=== PATIENT | male | born 1955 | race Caucasian/White ===

== ENCOUNTER 2016-09-28 20:39 | Emergency (ER) | payer MEDICAID ==
[~2016-09-28] VITALS: Ht 180.3 cm; Wt 78.0 kg
[2016-09-28 20:44] VITALS: BP 109/66; PULSE 83; RESP 20; TEMP 98; O2SAT 95
[2016-09-28 20:56] VITALS: BP_SYST 109; BP_SYST 110; BP_DIAS 62; BP_DIAS 66; PULSE 84; RESP 20; O2SAT 98
[2016-09-28] MEDS ORDERED: SODIUM CHLORIDE 0.9% FLUSH 5 ML FLUSH IVF PRN (21:00)
[2016-09-28] MEDS ORDERED: ASPIRIN 81 MG CHEW TAB PO ONE (21:00)
[2016-09-28] MEDS ORDERED: SODIUM CHLOR 0.9% 1000 ML INJ 1,000 ML IV ONE (21:00)
--- NOTE | 2016-09-28 21:19 | RADRPT ---
EXAM DATE/TIME: 09/28/2016 21:02 [facility] COMPARISON: CHEST SINGLE AP, September 07, 2016, 17:00. INDICATIONS : Patient has had chest pain today. MEDICAL HISTORY : Hypertension. Cerebrovascular disease. Throat cancer. SURGICAL HISTORY : None. ENCOUNTER: Initial ACUITY: 1 day PAIN SCORE: 0/10 LOCATION: Bilateral chest FINDINGS: A single view of the chest demonstrates the lungs to be symmetrically aerated without evidence of mas s, infiltrate or effusion. The cardiomediastinal contours are unremarkable. Osseous structures are intact. CONCLUSION: No acute disease. Jerome Hyatt MD FACR on September 28, 2016 at 21:17 Board Certified Radiologist. This report was verified electronically.
[2016-09-28 21:45] LABS: AUTOMATED NEUTROPHIL # 2.9 TH/MM3 (1.8-7.7); BASOPHIL # 0.1 TH/MM3 (0-0.2); EOSINOPHIL # 0.2 TH/MM3 (0-0.4); EOSINOPHIL % 3.7 % (0.0-4.0); HEMATOCRIT 38.7 % (39.0-51.0); HEMO FLAGS DIFF FINAL; LYMPH % 41.8 % (9.0-44.0); LYMPHOCYTE # 2.7 TH/MM3 (1.0-4.8); MEAN CELL VOLUME 101.2 FL (80.0-100.0); MEAN CORPUSCULAR HEMOGLOBIN 34.5 PG (27.0-34.0); MEAN CORPUSCULAR HGB CONC 34.1 % (32.0-36.0); MONO % 8.6 % (0.0-8.0); NEUT % 44.9 % (16.0-70.0); PLATELET COUNT 176 TH/MM3 (150-450); RED BLOOD COUNT 3.82 MIL/MM3 (4.50-5.90); RED CELL DISTRIBUTION WIDTH 13.7 % (11.6-17.2); WHITE BLOOD COUNT 6.5 TH/MM3 (4.0-11.0)
[2016-09-28 22:01] LABS: ANION GAP 7 MEQ/L (5-15); AST (GOT) 37 U/L (15-37); BICARBONATE 28.7 MEQ/L (21.0-32.0); BLOOD UREA NITROGEN 13 MG/DL (7-18); CHLORIDE 108 MEQ/L (98-107); GLOMERULAR FILTRATION RATE 97 ML/MIN (>89); MAGNESIUM 2.4 MG/DL (1.5-2.5); POTASSIUM 3.8 MEQ/L (3.5-5.1); SODIUM (NA) 144 MEQ/L (136-145)
[2016-09-28 22:06] LABS: INTERNATIONAL NORMALIZED RATIO 0.9 RATIO; PROTHROMBIN TIME - PATIENT 10.1 SEC (9.8-11.6)
[2016-09-28 22:08] LABS: ALKALINE PHOSPHATASE 83 U/L (45-117); ALT (GPT) 25 U/L (12-78); TOTAL BILIRUBIN ADULT 0.3 MG/DL (0.2-1.0)
[2016-09-29] VITALS: BP 110/68; PULSE 65; RESP 18; O2SAT 98
[2016-09-29 03:00] VITALS: BP 106/61; PULSE 61; RESP 18; O2SAT 96
[2016-09-29 06:00] VITALS: BP 113/64; PULSE 64; RESP 18; O2SAT 95
--- NOTE | 2016-09-29 06:36 | PD ---
HPI Chief Complaint: Chest Pain Time Seen by Provider: 20:48 Travel History International Travel<30 days: No Contact w/Intl Traveler<30days: No Traveled to known affect area: No History of Present Illness HPI Patient is a 61-year-old male brought in by EMS for chest pain. Per EMS he has been drinking tonight. When police approached him, he said he had chest pain. Patient does admit to drinking tonight. He says the left side of his chest is hurting. He does not provide much other history. PFSH Past Medical History Arthritis: Yes Blood Disorders: No Cancer: Yes (LARYNX) Cardiovascular Problems: Yes COPD: Yes Cerebrovascular Accident: Yes Coronary Artery Disease: Yes Diminished Hearing: No Endocrine: No Gastrointestinal Disorders: Yes Genitourinary: No Hypertension: Yes Immune Disorder: No Musculoskeletal: Yes (DJD) Neurologic: Yes (BENIGN TUMOR- BRAIN) Psychiatric: No Respiratory: Yes Immunizations Current: Yes Myocardial Infarction: Yes Seizures: Yes Tetanus Vaccination: Unknown Influenza Vaccination: No Past Surgical History Abdominal Surgery: Yes (COLONOSCOPY) Social History Alcohol Use: Yes (OCCASIONAL) Tobacco Use: Yes (1PPD) Substance Use: No Allergies-Medications (Allergen,Severity, Reaction): Coded Allergies: No Known Allergies (Verified , 09/28/16) Reported Meds & Prescriptions Reported Meds & Active Scripts Active No Active Prescriptions or Reported Medications Review of Systems ROS Limitations: Intoxication HENT: No: Headaches Cardiovascular: Positive: Chest Pain or Discomfort Respiratory: No: Shortness of Breath Gastrointestinal: No: Nausea, Vomiting, Abdominal Pain Musculoskeletal: No: Weakness Skin: No Rash, No Change in Pigmentation Neurologic: No: Weakness, Dizziness Physical Exam Narrative GENERAL: Awake and alert, unkept, alcohol on breath. SKIN: Warm and dry. HEAD: Atraumatic. Normocephalic. EYES: Pupils equal and round. No scleral icterus. ENT: Mucous membranes pink and moist. NECK: Trachea midline. No JVD. CARDIOVASCULAR: Regular rate and rhythm. No murmur appreciated. RESPIRATORY: No accessory muscle use. Clear to auscultation. Breath sounds equal bilaterally. GASTROINTESTINAL: Abdomen soft, non-tender, nondistended. MUSCULOSKELETAL: No obvious deformities. No clubbing. No cyanosis. No edema. NEUROLOGICAL: Awake and alert. No obvious cranial nerve deficits. Motor grossly within normal limits. Normal speech. PSYCHIATRIC: Appropriate mood and affect; insight and judgment normal. Data Data Last Documented VS Vital Signs Date Time Temp Pulse Resp B/P Pulse Ox O2 Delivery O2 Flow Rate FiO2 09/29/16 06:00 64 18 113/64 95 Room Air 09/28/16 20:44 98.0 Orders Electrocardiogram (09/28/16 20:53) Complete Blood Count With Diff (09/28/16 20:53) Comprehensive Metabolic Panel (09/28/16 20:53) Magnesium (Mg) (09/28/16 20:53) Prothrombin Time / Inr (Pt) (09/28/16 20:53) Act Partial Throm Time (Ptt) (09/28/16 20:53) Troponin I (09/28/16 20:53) Lipase (09/28/16 20:53) Chest, Single Ap (09/28/16 20:53) Ecg Monitoring (09/28/16 20:53) Bilateral Bp Monitoring (09/28/16 20:53) Iv Access Insert/Monitor (09/28/16 20:53) Oximetry (09/28/16 20:53) Oxygen Administration (09/28/16 20:53) Aspirin Chew (Aspirin Chew) (09/28/16 21:00) Sodium Chloride 0.9% Flush (Ns Flush) (09/28/16 21:00) Sodium Chlor 0.9% 1000 Ml Inj (Ns 1000 M (09/28/16 21:00) Alcohol (Ethanol) (09/28/16 21:35) Labs Laboratory Tests Test 09/28/16 21:10 White Blood Count 6.5 TH/MM3 Red Blood Count 3.82 MIL/MM3 Hemoglobin 13.2 GM/DL Hematocrit 38.7 % Mean Corpuscular Volume 101.2 FL Mean Corpuscular Hemoglobin 34.5 PG Mean Corpuscular Hemoglobin 34.1 % Concent Red Cell Distribution Width 13.7 % Platelet Count 176 TH/MM3 Mean Platelet Volume 8.1 FL Neutrophils (%) (Auto) 44.9 % Lymphocytes (%) (Auto) 41.8 % Monocytes (%) (Auto) 8.6 % Eosinophils (%) (Auto) 3.7 % Basophils (%) (Auto) 1.0 % Neutrophils # (Auto) 2.9 TH/MM3 Lymphocytes # (Auto) 2.7 TH/MM3 Monocytes # (Auto) 0.6 TH/MM3 Eosinophils # (Auto) 0.2 TH/MM3 Basophils # (Auto) 0.1 TH/MM3 CBC Comment DIFF FINAL Differential Comment Prothrombin Time 10.1 SEC Prothromb Time International 0.9 RATIO Ratio Activated Partial 26.0 SEC Thromboplast Time Sodium Level 144 MEQ/L Potassium Level 3.8 MEQ/L Chloride Level 108 MEQ/L Carbon Dioxide Level 28.7 MEQ/L Anion Gap 7 MEQ/L Blood Urea Nitrogen 13 MG/DL Creatinine 0.81 MG/DL Estimat Glomerular Filtration 97 ML/MIN Rate Random Glucose 95 MG/DL Calcium Level 8.2 MG/DL Magnesium Level 2.4 MG/DL Total Bilirubin 0.3 MG/DL Aspartate Amino Transf 37 U/L (AST/SGOT) Alanine Aminotransferase 25 U/L (ALT/SGPT) Alkaline Phosphatase 83 U/L Troponin I LESS THAN 0.02 NG/ML Total Protein 6.6 GM/DL Albumin 3.4 GM/DL Lipase 135 U/L Ethyl Alcohol Level 338 MG/DL [facility] Medical Decision Making Medical Screen Exam Complete: Yes Emergency Medical Condition: Yes Medical Record Reviewed: Yes Interpretation(s) ECG shows normal sinus rhythm, no ST elevation or depression. Differential Diagnosis Intoxication versus ACS versus costochondritis versus pneumonia Narrative Course Patient is a 61-year-old male comes in complaining of chest pain. He is obviously intoxicated. IV established, patient placed on cardiac care nurse. Labs sent show a alcohol level of 338. Troponin is negative. Chest x-ray shows no acute abnormalities. Patient states he would like to leave. I informed the patient that he is not able to leave yet as he is still intoxicated. Patient observed in the emergency department and re-evaluated when sober. Patient does not want stay in the hospital. Will be discharged when sober enough to go home. He says he does not care if he has a heart attack. Diagnosis Primary Impression: Alcohol intoxication Qualified Code: F10.120 - Alcohol intoxication, uncomplicated Patient Instructions: Alcohol Intoxication (ED), General Instructions Additional Instructions: Cut back on your alcohol use. Return to the ED as needed for any worsening symptoms. Scripts No Active Prescriptions or Reported Meds Disposition: 01 DISCHARGE HOME Condition: Stable Jada Pappas MD Sep 29, 2016 06:35
--- NOTE | 2016-09-29 18:48 | EKG ---
Date Performed: 09/28/2016 Time Performed: 21:11:57 PTAGE: 61 years EKG: Sinus rhythm POSSIBLE RIGHT VENTRICULAR CONDUCTION DELAY LEFT ANTERIOR FASCICULAR BLOCK POSSIBLE SEPTAL MYOCARDIA L INFARCTION ABNORMAL ECG PREVIOUS TRACING : 09/07/2016 16.33 Since previous tracing, no significant change noted DOCTOR: Leandra Rivas Interpretating Date/Time 09/29/2016 18:47:51
== END 2016-09-29 07:04 | disposition home or self-care (01) ==
LOC: NEPC 20:39 → NEPA 09-29 07:04
DX: F10.120 Alcohol abuse with intoxication, uncomplicated (principal); Y90.8 Blood alcohol level of 240 mg/100 ml or more
CPT/HCPCS: 71010; 80053; 80320; 83690; 83735; 84484; 85025; 85610; 85730; 93005; 96360; 99284; J7030

== ENCOUNTER 2016-10-22 22:05 | Emergency (ER) | payer MEDICAID ==
[2016-10-22 22:12] VITALS: BP 103/71; PULSE 54; RESP 16; TEMP 98.4; O2SAT 92
[2016-10-22] MEDS ORDERED: SODIUM CHLORIDE 0.9% FLUSH 5 ML FLUSH IVF PRN (22:15)
[2016-10-22] MEDS ORDERED: SODIUM CHLORID 0.9% 500 ML INJ 500 ML IV ONE (22:15)
[2016-10-22 22:18] VITALS: PULSE 55; RESP 16; O2SAT 98
--- NOTE | 2016-10-22 22:26 | PD ---
HPI Chief Complaint: Chest Pain Time Seen by Provider: 22:12 Travel History International Travel<30 days: No Contact w/Intl Traveler<30days: No Traveled to known affect area: No History of Present Illness HPI 61 yo M w L cp x 1 week. He called EMS prior to arrival tonight reporting the same. He drank alcohol throughout the day. EMS gave nitro which helped minimally however bp dropped to 86 systolic upon arrival to ER. CP is constant. No modifying factor. No SOB. He also complains of rhinorrhea, cough and hot/ cold sweats. Pt also notes treatment for scabies has failed twice. PFSH Past Medical History Arthritis: Yes Blood Disorders: No Cancer: Yes (LARYNX) Cardiovascular Problems: Yes COPD: Yes Cerebrovascular Accident: Yes Coronary Artery Disease: Yes Diminished Hearing: No Endocrine: No Gastrointestinal Disorders: Yes Genitourinary: No Hypertension: Yes Immune Disorder: No Musculoskeletal: Yes (DJD) Neurologic: Yes (BENIGN TUMOR- BRAIN) Psychiatric: No Respiratory: Yes Immunizations Current: Yes Myocardial Infarction: Yes Seizures: Yes Past Surgical History Abdominal Surgery: Yes (COLONOSCOPY) Social History Alcohol Use: Yes (OCCASIONAL) Tobacco Use: Yes (1PPD) Substance Use: No Allergies-Medications (Allergen,Severity, Reaction): Coded Allergies: No Known Allergies (Verified , 10/22/16) Reported Meds & Prescriptions Reported Meds & Active Scripts Active No Active Prescriptions or Reported Medications Review of Systems Except as stated in HPI: all other systems reviewed are Neg General / Constitutional: No: Fever Cardiovascular: Positive: Chest Pain or Discomfort Respiratory: No: Cough Physical Exam Narrative GENERAL: 61 yo M, etoh on breath SKIN: Warm and dry. Occasional linear lesions about skin including intertriginous spaces HEAD: Atraumatic. Normocephalic. EYES: Pupils equal and round. No scleral icterus. No injection or drainage. ENT: No nasal bleeding or discharge. Mucous membranes pink and moist. NECK: Trachea midline. No JVD. CARDIOVASCULAR: Regular rate and rhythm. RESPIRATORY: No accessory muscle use. Clear to auscultation. Breath sounds equal bilaterally. GASTROINTESTINAL: Abdomen soft, non-tender, nondistended. Hepatic and splenic margins not palpable. MUSCULOSKELETAL: Extremities without clubbing, cyanosis, or edema. No obvious deformities. NEUROLOGICAL: Awake and alert. No obvious cranial nerve deficits. Motor grossly within normal limits. Five out of 5 muscle strength in the arms and legs. Normal speech. PSYCHIATRIC: Appropriate mood and affect; insight and judgment normal. Data Data Last Documented VS Vital Signs Date Time Temp Pulse Resp B/P Pulse Ox O2 Delivery O2 Flow Rate FiO2 10/22/16 22:18 54 18 92 Room Air 10/22/16 22:18 2 10/22/16 22:12 98.4 103/71 Temp 98.4 Orders Electrocardiogram (10/22/16 22:13) Basic Metabolic Panel (Bmp) (10/22/16 22:13) Ckmb (Isoenzyme) Profile (10/22/16 22:13) Complete Blood Count With Diff (10/22/16 22:13) Magnesium (Mg) (10/22/16 22:13) Prothrombin Time / Inr (Pt) (10/22/16 22:13) Act Partial Throm Time (Ptt) (10/22/16 22:13) Troponin I (10/22/16 22:13) Chest, Single Ap (10/22/16 22:13) Ecg Monitoring (10/22/16 22:13) Bilateral Bp Monitoring (10/22/16 22:13) Iv Access Insert/Monitor (10/22/16 22:13) Oximetry (10/22/16 22:13) Oxygen Administration (10/22/16 22:13) Sodium Chloride 0.9% Flush (Ns Flush) (10/22/16 22:15) Sodium Chlorid 0.9% 500 Ml Inj (Ns 500 M (10/22/16 22:15) Hepatic Functional Panel (10/22/16 22:20) Lipase (10/22/16 22:20) CKMB (10/22/16 22:20) CKMB% (10/22/16 22:20) Protein Corrected Calcium(Pcc) (10/22/16 22:20) Labs Laboratory Tests Test 10/22/16 22:20 White Blood Count 5.8 TH/MM3 Red Blood Count 3.53 MIL/MM3 Hemoglobin 12.9 GM/DL Hematocrit 36.5 % Mean Corpuscular Volume 103.4 FL Mean Corpuscular Hemoglobin 36.5 PG Mean Corpuscular Hemoglobin 35.3 % Concent Red Cell Distribution Width 14.6 % Platelet Count 206 TH/MM3 Mean Platelet Volume 8.0 FL Neutrophils (%) (Auto) 50.9 % Lymphocytes (%) (Auto) 35.3 % Monocytes (%) (Auto) 11.7 % Eosinophils (%) (Auto) 1.2 % Basophils (%) (Auto) 0.9 % Neutrophils # (Auto) 3.0 TH/MM3 Lymphocytes # (Auto) 2.1 TH/MM3 Monocytes # (Auto) 0.7 TH/MM3 Eosinophils # (Auto) 0.1 TH/MM3 Basophils # (Auto) 0.0 TH/MM3 CBC Comment DIFF FINAL Differential Comment Prothrombin Time 11.2 SEC Prothromb Time International 1.0 RATIO Ratio Activated Partial 30.1 SEC Thromboplast Time Sodium Level 142 MEQ/L Potassium Level 4.2 MEQ/L Chloride Level 105 MEQ/L Carbon Dioxide Level 30.9 MEQ/L Blood Urea Nitrogen 15 MG/DL Creatinine 0.98 MG/DL Random Glucose 96 MG/DL Calcium Level 7.4 MG/DL Magnesium Level 2.2 MG/DL Total Bilirubin 0.4 MG/DL Direct Bilirubin 0.1 MG/DL Aspartate Amino Transf 60 U/L (AST/SGOT) Alanine Aminotransferase 27 U/L (ALT/SGPT) Alkaline Phosphatase 76 U/L Total Protein 5.8 GM/DL Albumin 3.2 GM/DL Anion Gap 6 MEQ/L Estimat Glomerular Filtration 78 ML/MIN Rate Protein Corrected Calcium 8.1 MG/DL Indirect Bilirubin 0.3 MG/DL Total Creatine Kinase 269 U/L Creatine Kinase MB 4.2 NG/ML Troponin I 0.02 NG/ML Lipase 132 U/L MDM Medical Decision Making Medical Screen Exam Complete: Yes Emergency Medical Condition: Yes Medical Record Reviewed: Yes Differential Diagnosis NSTEMI, unstable angina, coronary vasospasm, PE, PTX, aortic dissection, pericarditis, myocarditis, endocarditis, PNA, esophageal disease, aneurysm, musculoskeletal etiologies, anxiety, cocaine/sympathomimetic abuse Narrative Course CBC & BMP Diagram 10/22/16 22:20 AST 60 Tn 0.02 Lipase 132 EKG: Sinus, rate 54, LAFB Last 24 hours Impressions Chest X-Ray 10/22/163 Signed Impressions: Service Date/Time: Saturday, October 22, 2016 22:36 - CONCLUSION: No acute disease. Khadar Garcia MD Patient understands that his blood work demonstrates a possible myocardial infarction. He was offered a nicotine patch. He is quite insistent upon leaving. He understands that by doing so he may suffer permanent disability, pain suffering long-term, change in lifestyle, dependence on others and possibly . He understands he can return any time. He demonstrates an acceptable degree of clinical sobriety since that he has capacity for independent decision making. Diagnosis Primary Impression: Left against medical advice Referrals: [employer] 1 day Primary Care Physician 2 days Additional Instructions: You have a choice when it comes to health care, and we are glad that you chose [facility]. Hopefully, we have met your expectations on today's visit. You are welcome to return to [facility] at any time, as we are committed to meeting the health care needs of our community. Med/Other Pt SpecificInfo: No Change to Meds Scripts No Active Prescriptions or Reported Meds Disposition: 07 AGAINST MEDICAL ADVICE Condition: Alessandro Lay MD Oct 22, 2016 22:26
[2016-10-22 22:53] LABS: BASOPHIL % 0.9 % (0.0-2.0); EOSINOPHIL # 0.1 TH/MM3 (0-0.4); EOSINOPHIL % 1.2 % (0.0-4.0); HEMATOCRIT 36.5 % (39.0-51.0); HEMO FLAGS DIFF FINAL; LYMPH % 35.3 % (9.0-44.0); LYMPHOCYTE # 2.1 TH/MM3 (1.0-4.8); MEAN CELL VOLUME 103.4 FL (80.0-100.0); MEAN CORPUSCULAR HEMOGLOBIN 36.5 PG (27.0-34.0); MEAN CORPUSCULAR HGB CONC 35.3 % (32.0-36.0); MONO % 11.7 % (0.0-8.0); NEUT % 50.9 % (16.0-70.0); PLATELET COUNT 206 TH/MM3 (150-450); RED BLOOD COUNT 3.53 MIL/MM3 (4.50-5.90); RED CELL DISTRIBUTION WIDTH 14.6 % (11.6-17.2); WHITE BLOOD COUNT 5.8 TH/MM3 (4.0-11.0)
[2016-10-22 23:03] LABS: APTT (PATIENT) 30.1 SEC (24.3-30.1); PROTHROMBIN TIME - PATIENT 11.2 SEC (9.8-11.6)
--- NOTE | 2016-10-22 23:04 | RADRPT ---
EXAM DATE/TIME: 10/22/2016 22:36 [facility] COMPARISON: CHEST SINGLE AP, September 28, 2016, 21:02. INDICATIONS : Chest pain today. MEDICAL HISTORY : Chronic obstructive pulmonary disease. Emphysema. Hypertension. Cerebrovascular disease. Throat cancer. SURGICAL HISTORY : None. ENCOUNTER: Initial ACUITY: 1 day PAIN SCORE: 10/10 LOCATION: Bilateral chest FINDINGS: Hyperinflation. Heart and mediastinal contours are normal. No consolidation or effusion. Osseous stru ctures are intact. CONCLUSION: No acute disease. Khadar Garcia MD on October 22, 2016 at 23:02 Board Certified Radiologist. This report was verified electronically.
[2016-10-22 23:21] LABS: ALKALINE PHOSPHATASE 76 U/L (45-117); ALT (GPT) 27 U/L (12-78); ANION GAP 6 MEQ/L (5-15); AST (GOT) 60 U/L (15-37); BICARBONATE 30.9 MEQ/L (21.0-32.0); BLOOD UREA NITROGEN 15 MG/DL (7-18); CHLORIDE 105 MEQ/L (98-107); CREATINE KINASE 269 U/L (39-308); GLOMERULAR FILTRATION RATE 78 ML/MIN (>89); INDIRECT BILIRUBIN 0.3 MG/DL (0.0-0.8); MAGNESIUM 2.2 MG/DL (1.5-2.5); POTASSIUM 4.2 MEQ/L (3.5-5.1); SODIUM (NA) 142 MEQ/L (136-145); TOTAL BILIRUBIN ADULT 0.4 MG/DL (0.2-1.0)
[2016-10-22 23:41] LABS: CKMB 4.2 NG/ML (0.5-3.6)
[2016-10-23 00:17] LABS: CALCIUM-PROTEIN CORRECTED 8.1 MG/DL (8.5-10.1)
--- NOTE | 2016-10-23 11:44 | EKG ---
Date Performed: 10/22/2016 Time Performed: 22:27:21 PTAGE: 61 years EKG: SINUS BRADYCARDIA LEFT ANTERIOR FASCICULAR BLOCK ABNORMAL ECG PREVIOUS TRACING : 09/28/2016 21.11 DOCTOR: Kevin De Souza Interpretating Date/Time 10/23/2016 11:42:22
--- NOTE | 2016-10-23 11:45 | EKG ---
Date Performed: 10/22/2016 Time Performed: 22:14:35 PTAGE: 61 years EKG: SINUS BRADYCARDIA POSSIBLE RIGHT VENTRICULAR CONDUCTION DELAY LEFT ANTERIOR FASCICULAR BLOC K ABNORMAL ECG NO PREVIOUS TRACING DOCTOR: Kevin De Souza Interpretating Date/Time 10/23/2016 11:42:45
== END 2016-10-23 00:28 | disposition left against medical advice (07) ==
LOC: NEPC 22:05
DX: R07.9 Chest pain, unspecified (principal); F17.210 Nicotine dependence, cigarettes, uncomplicated; M19.90 Unspecified osteoarthritis, unspecified site; J44.9 Chronic obstructive pulmonary disease, unspecified; Z86.73 Personal history of transient ischemic attack (TIA), and cerebral infarction without residual deficits; I25.10 Atherosclerotic heart disease of native coronary artery without angina pectoris; I25.2 Old myocardial infarction; I10 Essential (primary) hypertension; B86 Scabies
CPT/HCPCS: 71010; 80048; 80076; 82550; 82552; 83690; 83735; 84155; 84484; 85025; 85610; 85730; 93005; 99285; J7040

== ENCOUNTER 2016-11-07 21:22 | Observation (INO) | payer MEDICAID ==
[~2016-11-07] VITALS: Ht 177.8 cm; Wt 75.0 kg
[2016-11-07 21:29] VITALS: BP 126/78; PULSE 86; RESP 22; TEMP 98.2; O2SAT 97
--- NOTE | 2016-11-07 21:39 | PD ---
HPI Chief Complaint: Chest Pain Time Seen by Provider: 21:32 Travel History International Travel<30 days: No Contact w/Intl Traveler<30days: No Traveled to known affect area: No History of Present Illness HPI 61-year-old male with history of alcohol abuse, hypertension, released TIA, CAD and [place], presents to the ER today because he states that he has had 2-3 weeks history of left parasternal chest pains which he currently rates it a 10 out 10 , worsens with walking, nausea, vomiting. He apparently has been admitted for this reason recently and left AMA. He states he is willing to stay this time. Modifying Factors: Worse with walking Associated Signs & Symptoms: Left parasternal chest pains which is a 10 out 10 Risk Factors: [place] history PFSH Past Medical History Arthritis: Yes Blood Disorders: No Cancer: Yes (LARYNX) Cardiovascular Problems: Yes COPD: Yes Cerebrovascular Accident: Yes Coronary Artery Disease: Yes Diminished Hearing: No Endocrine: No Gastrointestinal Disorders: Yes Genitourinary: No Hypertension: Yes Immune Disorder: No Musculoskeletal: Yes (DJD) Neurologic: Yes (BENIGN TUMOR- BRAIN) Psychiatric: No Respiratory: Yes Immunizations Current: Yes Myocardial Infarction: Yes Seizures: Yes Past Surgical History Abdominal Surgery: Yes (COLONOSCOPY) Social History Alcohol Use: Yes Tobacco Use: Yes (1PPD) Substance Use: No Allergies-Medications (Allergen,Severity, Reaction): Coded Allergies: No Known Allergies (Verified , 11/07/16) Reported Meds & Prescriptions Reported Meds & Active Scripts Active No Active Prescriptions or Reported Medications Review of Systems Except as stated in HPI: all other systems reviewed are Neg Physical Exam Narrative GENERAL: Well-nourished, well-developed elderly white male patient in no acute distress. SKIN: Warm and dry. HEAD: Normocephalic. EYES: No scleral icterus. No injection or drainage. NECK: Supple, trachea midline. CARDIOVASCULAR: Regular rate and rhythm without murmurs, gallops, or rubs. RESPIRATORY: Breath sounds equal bilaterally. No accessory muscle use. GASTROINTESTINAL: Abdomen soft, non-tender, nondistended. MUSCULOSKELETAL: No cyanosis, or edema. BACK: Nontender without obvious deformity. No CVA tenderness. Data Data Last Documented VS Vital Signs Date Time Temp Pulse Resp B/P Pulse Ox O2 Delivery O2 Flow Rate FiO2 11/07/16 21:29 98.2 86 22 126/78 97 Orders Electrocardiogram (11/07/16 21:32) Ckmb (Isoenzyme) Profile (11/07/16 21:32) Complete Blood Count With Diff (11/07/16 21:32) Comprehensive Metabolic Panel (11/07/16 21:32) Magnesium (Mg) (11/07/16 21:32) Prothrombin Time / Inr (Pt) (11/07/16 21:32) Act Partial Throm Time (Ptt) (11/07/16 21:32) Troponin I (11/07/16 21:32) Lipase (11/07/16 21:32) Chest, Single Ap (11/07/16 21:32) Ecg Monitoring (11/07/16 21:32) Bilateral Bp Monitoring (11/07/16 21:32) Iv Access Insert/Monitor (11/07/16 21:32) Oximetry (11/07/16 21:32) Oxygen Administration (11/07/16 21:32) Aspirin (Aspirin) (11/07/16 21:45) Sodium Chloride 0.9% Flush (Ns Flush) (11/07/16 21:45) Alcohol (Ethanol) (11/07/16 21:32) CKMB (11/07/16 21:38) CKMB% (11/07/16 21:38) Labs Laboratory Tests Test 11/07/16 21:38 White Blood Count 6.0 TH/MM3 Red Blood Count 3.79 MIL/MM3 Hemoglobin 13.7 GM/DL Hematocrit 39.4 % Mean Corpuscular Volume 104.0 FL Mean Corpuscular Hemoglobin 36.2 PG Mean Corpuscular Hemoglobin 34.8 % Concent Red Cell Distribution Width 14.4 % Platelet Count 189 TH/MM3 Mean Platelet Volume 8.1 FL Neutrophils (%) (Auto) 53.9 % Lymphocytes (%) (Auto) 35.9 % Monocytes (%) (Auto) 8.6 % Eosinophils (%) (Auto) 0.9 % Basophils (%) (Auto) 0.7 % Neutrophils # (Auto) 3.3 TH/MM3 Lymphocytes # (Auto) 2.2 TH/MM3 Monocytes # (Auto) 0.5 TH/MM3 Eosinophils # (Auto) 0.1 TH/MM3 Basophils # (Auto) 0.0 TH/MM3 CBC Comment DIFF FINAL Differential Comment Prothrombin Time 11.4 SEC Prothromb Time International 1.0 RATIO Ratio Activated Partial 29.8 SEC Thromboplast Time Sodium Level 140 MEQ/L Potassium Level 3.7 MEQ/L Chloride Level 104 MEQ/L Carbon Dioxide Level 27.3 MEQ/L Anion Gap 9 MEQ/L Blood Urea Nitrogen 13 MG/DL Creatinine 1.10 MG/DL Estimat Glomerular Filtration 68 ML/MIN Rate Random Glucose 69 MG/DL Calcium Level 7.6 MG/DL Magnesium Level 2.3 MG/DL Total Bilirubin 0.8 MG/DL Aspartate Amino Transf 116 U/L (AST/SGOT) Alanine Aminotransferase 91 U/L (ALT/SGPT) Alkaline Phosphatase 234 U/L Total Creatine Kinase 200 U/L Creatine Kinase MB 5.2 NG/ML Troponin I LESS THAN 0.02 NG/ML Total Protein 6.0 GM/DL Albumin 3.2 GM/DL Lipase 105 U/L Ethyl Alcohol Level 259 MG/DL MDM Medical Decision Making Medical Screen Exam Complete: Yes Emergency Medical Condition: Yes Medical Record Reviewed: Yes Interpretation(s) EKG shows NSR, no ST elevation or depression, and no arrhythmias. No significant T-wave inversions. Laboratory Tests Test 11/07/16 21:38 Red Blood Count 3.79 MIL/MM3 (4.50-5.90) Mean Corpuscular Volume 104.0 FL (80.0-100.0) Mean Corpuscular Hemoglobin 36.2 PG (27.0-34.0) Monocytes (%) (Auto) 8.6 % (0.0-8.0) Estimat Glomerular Filtration 68 ML/MIN (>89) Rate Random Glucose 69 MG/DL (74-106) Calcium Level 7.6 MG/DL (8.5-10.1) Aspartate Amino Transf 116 U/L (15-37) (AST/SGOT) Alanine Aminotransferase 91 U/L (12-78) (ALT/SGPT) Alkaline Phosphatase 234 U/L (45-117) Creatine Kinase MB 5.2 NG/ML (0.5-3.6) Troponin I LESS THAN 0.02 NG/ML (0.02-0.05) Total Protein 6.0 GM/DL (6.4-8.2) Albumin 3.2 GM/DL (3.4-5.0) Ethyl Alcohol Level 259 MG/DL (0-5) Last 24 hours Impressions Chest X-Ray 2/21/17 2132 Signed Impressions: Service Date/Time: Monday, November 07, 2016 21:44 - CONCLUSION: No evidence of acute cardiopulmonary disease. Benjamín Chambers MD Differential Diagnosis Chest painsACS versus gastritis versus pneumonia versus dysrhythmias Narrative Course EKG did not show signs of acute changes. Troponins are negative. Patient has a mildly elevated CK-MB which she has had as well in the previous admission. At this point, my plan would be to admit him for further evaluation of chest pain. His liver enzymes are mildly elevated but he is not tender in the right upper quadrant. Is suspect that he may have enzyme elevation secondary to his alcohol use. He is intoxicated as well. Diagnosis Primary Impression: Alcohol intoxication Additional Impression: CHEST PAIN, UNSPECIFIED Admitting Information Admitting Physician Requests: Admit Scripts No Active Prescriptions or Reported Meds Zoe Rico MD Nov 07, 2016 21:39
[2016-11-07] MEDS ORDERED: SODIUM CHLORIDE 0.9% FLUSH 5 ML FLUSH IVF PRN (21:45)
[2016-11-07] MEDS ORDERED: ASPIRIN 325 MG TAB PO ONE (21:45)
--- NOTE | 2016-11-07 21:52 | RADRPT ---
EXAM DATE/TIME: 11/07/2016 21:44 [facility] COMPARISON: CHEST SINGLE AP, October 22, 2016, 22:36. INDICATIONS : Chest pain. MEDICAL HISTORY : None. SURGICAL HISTORY : None. ENCOUNTER: Initial ACUITY: 1 day PAIN SCORE: 0/10 LOCATION: Bilateral chest FINDINGS: A single view of the chest demonstrates the lungs to be symmetrically aerated without evidence of mas s, infiltrate or effusion. The cardiomediastinal contours are unremarkable. Osseous structures are intact. CONCLUSION: No evidence of acute cardiopulmonary disease. Benjamín Chambers MD on November 07, 2016 at 21:50 Board Certified Radiologist. This report was verified electronically.
[2016-11-07 22:02] LABS: AUTOMATED NEUTROPHIL # 3.3 TH/MM3 (1.8-7.7); BASOPHIL % 0.7 % (0.0-2.0); EOSINOPHIL # 0.1 TH/MM3 (0-0.4); EOSINOPHIL % 0.9 % (0.0-4.0); HEMATOCRIT 39.4 % (39.0-51.0); HEMO FLAGS DIFF FINAL; LYMPH % 35.9 % (9.0-44.0); LYMPHOCYTE # 2.2 TH/MM3 (1.0-4.8); MEAN CORPUSCULAR HEMOGLOBIN 36.2 PG (27.0-34.0); MEAN CORPUSCULAR HGB CONC 34.8 % (32.0-36.0); MONO % 8.6 % (0.0-8.0); NEUT % 53.9 % (16.0-70.0); PLATELET COUNT 189 TH/MM3 (150-450); RED BLOOD COUNT 3.79 MIL/MM3 (4.50-5.90); RED CELL DISTRIBUTION WIDTH 14.4 % (11.6-17.2)
[2016-11-07 22:10] LABS: APTT (PATIENT) 29.8 SEC (24.3-30.1); PROTHROMBIN TIME - PATIENT 11.4 SEC (9.8-11.6)
[2016-11-07 22:26] LABS: ALT (GPT) 91 U/L (12-78); ANION GAP 9 MEQ/L (5-15); AST (GOT) 116 U/L (15-37); BICARBONATE 27.3 MEQ/L (21.0-32.0); BLOOD UREA NITROGEN 13 MG/DL (7-18); CHLORIDE 104 MEQ/L (98-107); GLOMERULAR FILTRATION RATE 68 ML/MIN (>89); MAGNESIUM 2.3 MG/DL (1.5-2.5); POTASSIUM 3.7 MEQ/L (3.5-5.1); SODIUM (NA) 140 MEQ/L (136-145)
[2016-11-07 22:29] LABS: ALKALINE PHOSPHATASE 234 U/L (45-117); CREATINE KINASE 200 U/L (39-308); TOTAL BILIRUBIN ADULT 0.8 MG/DL (0.2-1.0)
[2016-11-07 22:48] LABS: CKMB 5.2 NG/ML (0.5-3.6)
[2016-11-07 23:30] VITALS: BP 129/74; PULSE 74; RESP 18; O2SAT 95
--- NOTE | 2016-11-08 22:15 | EKG ---
Date Performed: 11/07/2016 Time Performed: 21:34:09 PTAGE: 61 years EKG: Sinus rhythm MARKED LEFT AXIS DEVIATION ABNORMAL ECG PREVIOUS TRACING : 10/22/2016 22.27 Compared to prior tracing no significant change DOCTOR: Feliciano John Interpretating Date/Time 11/08/2016 22:14:34
== END 2016-11-07 23:31 | disposition left against medical advice (07) ==
LOC: NEPC 21:22 → NEDA 23:08
PROVIDERS: ADMIT Internal Medicine Interventional Cardiology; ATTEND Internal Medicine Interventional Cardiology
DX: R07.9 Chest pain, unspecified (principal); R79.89 Other specified abnormal findings of blood chemistry; F10.129 Alcohol abuse with intoxication, unspecified; F17.210 Nicotine dependence, cigarettes, uncomplicated; I25.10 Atherosclerotic heart disease of native coronary artery without angina pectoris; I25.2 Old myocardial infarction; J44.9 Chronic obstructive pulmonary disease, unspecified; Z85.21 Personal history of malignant neoplasm of larynx; Z86.73 Personal history of transient ischemic attack (TIA), and cerebral infarction without residual deficits
CPT/HCPCS: 71010; 80053; 80320; 82550; 82552; 83690; 83735; 84484; 85025; 85610; 85730; 93005

== ENCOUNTER 2017-02-28 12:30 | Observation (INO) | payer MEDICAID ==
[~2017-02-28] VITALS: Ht 180.3 cm; Wt 76.0 kg
[2017-02-28 12:44] VITALS: BP 115/67; PULSE 81; RESP 22; TEMP 99.1; O2SAT 94
[2017-02-28] MEDS ORDERED: HYDR-3533 PO (12:46)
[2017-02-28 13:00] VITALS: RESP 22; O2SAT 96
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
[2017-02-28] MEDS: SODIUM CHLORIDE 0.9% FLUSH 10 ML FLUSH IVF PRN ×3 (13:13→16:00)
[2017-02-28] MEDS: RESP: ALBUTEROL 2.5 MG/IPRATROPIUM 0.5 MG NEB (SCH) INH (13:20)
[2017-02-28 13:40] LABS: AUTOMATED NEUTROPHIL # 5.9 TH/MM3 (1.8-7.7); BASOPHIL % 0.5 % (0.0-2.0); HEMATOCRIT 33.2 % (39.0-51.0); LYMPH % 9.6 % (9.0-44.0); LYMPHOCYTE # 0.7 TH/MM3 (1.0-4.8); MEAN CELL VOLUME 105.5 FL (80.0-100.0); MEAN CORPUSCULAR HEMOGLOBIN 35.3 PG (27.0-34.0); MEAN CORPUSCULAR HGB CONC 33.4 % (32.0-36.0); MONO % 3.6 % (0.0-8.0); NEUT % 86.3 % (16.0-70.0); PLATELET COUNT 82 TH/MM3 (150-450); RED BLOOD COUNT 3.14 MIL/MM3 (4.50-5.90); WHITE BLOOD COUNT 6.8 TH/MM3 (4.0-11.0)
[2017-02-28 13:49] LABS: HEMO FLAGS AUTO DIFF
[2017-02-28 13:54] LABS: APTT (PATIENT) 30.4 SEC (24.3-30.1); INTERNATIONAL NORMALIZED RATIO 1.1 RATIO; PROTHROMBIN TIME - PATIENT 12.6 SEC (9.8-11.6)
--- NOTE | 2017-02-28 14:07 | RADRPT ---
EXAM DATE/TIME: 02/28/2017 13:25 [facility] COMPARISON: CHEST SINGLE AP, November 07, 2016, 21:44. INDICATIONS : Patient has been short of breath for a month. MEDICAL HISTORY : Chronic obstructive pulmonary disease. Emphysema. Hypertension. SURGICAL HISTORY : None. ENCOUNTER: Initial ACUITY: 1 month PAIN SCORE: 0/10 LOCATION: Bilateral chest FINDINGS: A single view of the chest demonstrates the lungs to be symmetrically aerated without evidence of mas s, infiltrate or effusion. The cardiomediastinal contours are unremarkable. Osseous structures are intact. CONCLUSION: 1. No acute cardiopulmonary disease radiographically. Pedro Lundberg MD on February 28, 2017 at 14:04 Board Certified Radiologist. This report was verified electronically.
[2017-02-28 14:17] LABS: ANION GAP 9 MEQ/L (5-15); AST (GOT) 77 U/L (15-37); BICARBONATE 25.8 MEQ/L (21.0-32.0); BLOOD UREA NITROGEN 15 MG/DL (7-18); CHLORIDE 96 MEQ/L (98-107); GLOMERULAR FILTRATION RATE 89 ML/MIN (>89); POTASSIUM 4.2 MEQ/L (3.5-5.1); SODIUM (NA) 131 MEQ/L (136-145)
[2017-02-28 14:22] LABS: ALKALINE PHOSPHATASE 156 U/L (45-117); ALT (GPT) 26 U/L (12-78); CREATINE KINASE 524 U/L (39-308); TOTAL BILIRUBIN ADULT 0.9 MG/DL (0.2-1.0)
[2017-02-28 14:24] LABS: BANDS 27 % (0-6); METAMYELOCYTES 5 % (0-1); NEUTROPHIL # MANUAL DIFF 6.3 TH/MM3 (1.8-7.7); PLATELET ESTIMATE SMEAR LOW (NORMAL); PLATELET MORPHOLOGY NORMAL (NORMAL); POLYS (SEG NEUTROPHILS) 60 % (16-70); WBC DIFF SAMPLE 100
[2017-02-28 14:25] LABS: SCAN/DIFF FINAL DIFF MANUAL; TOXIC GRANULATION 1+ (NORMAL)
[2017-02-28 14:35] VITALS: BP 108/60; PULSE 89; RESP 20; TEMP 98.6; O2SAT 96
[2017-02-28] MEDS ORDERED: SODIUM CHLOR 0.9% 1000 ML INJ 1,000 ML IV SCH (14:42)
[2017-02-28] MEDS ORDERED: RESP: ALBUTEROL 2.5 MG/IPRATROPIUM 0.5 MG NEB (SCH) INH ONE (14:45)
[2017-02-28] MEDS ORDERED: methylPREDNISolone SOD SUCC 125 MG/2 ML VIAL IVP ONE (14:45)
[2017-02-28] MEDS ORDERED: cefTRIAXone INJ 1,000 MG in SODIUM CHLORIDE 0.9% INJ 100 ML IV ONE (14:45)
[2017-02-28] MEDS ORDERED: AZITHROMYCIN INJ 500 MG in SODIUM CHLOR 0.9% 250 ML INJ 250 ML IV ONE (14:45)
[2017-02-28 15:28] VITALS: BP 108/55; PULSE 92; RESP 20; O2SAT 97
[2017-02-28 15:56] LABS: BLOOD, URINE NEG (NEG); COMMENT (UR) CULT NOT INDICATED; CULTURE IF INDICATED CULT NOT INDICATED; GLUCOSE,URINE NEG (NEG); KETONE, URINE NEG (NEG); MUCUS URINE FEW /lpf (OCC); NITRITE,URINE NEG (NEG); SQUAMOUS EPITHELIAL CELL URINE <1 /hpf (0-5); URINE COLOR YELLOW (YELLW/STRAW)
[2017-02-28] MEDS ORDERED: IOHEXOL 350 MG/ML 10 ML VIAL (for RAD DIAG) IV ONE (16:18)
--- NOTE | 2017-02-28 16:41 | RADRPT ---
EXAM DATE/TIME: 02/28/2017 16:03 [facility] COMPARISON: No previous studies available for comparison. INDICATIONS : Dyspenea for one week. IV CONTRAST: 50 cc Omnipaque 350 (iohexol) IV RADIATION DOSE: 6.36 CTDIvol (mGy) MEDICAL HISTORY : Cardiovascular disease. Seizures. Hypertension.COPD SURGICAL HISTORY : None. ENCOUNTER: Initial ACUITY: 1 week PAIN SCALE: 3/10 LOCATION: chest TECHNIQUE: Volumetric scanning of the chest was performed using a pulmonary embolism protocol MIP images were re constructed. Using automated exposure control and adjustment of the mA and/or kV according to patien t size, radiation dose was kept as low as reasonably achievable to obtain optimal diagnostic quality images. FINDINGS: Examination is limited secondary to significant patient motion. PULMONARY ARTERIES: The pulmonary arteries are visualized to the proximal segmental level without evidence for intralumin al filling defect to suggest pulmonary embolism. More distal segmental and subsegmental branches are inadequately visualized for definitive evaluation. LUNGS: There is moderate centrilobular emphysema with upper lobe predominance. There is patchy groundglass o pacity in the medial anterior left upper lobe with near. Minimal bilateral lower lobe groundglass opa cities are consistent with atelectasis. PLEURAE: There is no gross pleural thickening or pleural effusion. MEDIASTINUM: Subcentimeter mediastinal nodes do not meets CT size criteria. Heart is grossly unremarkable without significant pericardial effusion. MUSCULOSKELETAL: No gross lytic or blastic bony lesions. MISCELLANEOUS: The visualized upper abdominal organs demonstrate no acute abnormality. CONCLUSION: 1. Very limited examination due to significant patient motion. 2. No evidence for pulmonary embolism to the proximal segmental level. More distal segmental and subs egmental PE cannot be evaluated for on this exam. 3. Moderate upper lobe predominant centrilobular emphysema with focal area of groundglass opacity wit h nearly tree in bud appearance in the medial left anterior upper lobe consistent with focal bronchio litis. Pedro Lundberg MD on February 28, 2017 at 16:27 Board Certified Radiologist. This report was verified electronically.
[2017-02-28] MEDS ORDERED: ONDANSETRON HCL 4 MG/2 ML VIAL IV PUSH PRN (17:00)
[2017-02-28] MEDS ORDERED: RESP: ALBUTEROL 1.25 MG/3 ML NEB (PRN) NEB (17:00)
[2017-02-28] MEDS ORDERED: SODIUM CHLOR 0.9% 1000 ML INJ 1,000 ML IV ONE (17:00)
[2017-02-28] MEDS ORDERED: ACETAMINOPHEN 325 MG TAB PO PRN (17:00)
[2017-02-28] MEDS ORDERED: RESP: ALBUTEROL 2.5 MG/IPRATROPIUM 0.5 MG NEB (SCH) NEB (18:00)
--- NOTE | 2017-03-01 17:11 | EKG ---
Date Performed: 02/28/2017 Time Performed: 13:18:11 PTAGE: 61 years EKG: Sinus rhythm LEFT ANTERIOR FASCICULAR BLOCK SEPTAL MYOCARDIAL INFARCTION Consider anteroseptal myocardial infarct ion-age indeterminate. ABNORMAL ECG PREVIOUS TRACING : 11/07/2016 21.34 DOCTOR: Brock Shafer Interpretating Date/Time 03/01/2017 17:09:37
--- NOTE | 2017-03-04 13:21 | HHI.DS ---
Discharge Summary Admission Date Feb 28, 2017 at 17:05 Discharge Date: Mar 04, 2017 Admitting Diagnosis COPD Exacerbation, Pneumonia (1) COPD exacerbation ICD Code: J44.1 Diagnosis: Principal Procedures none Brief History - From Admission 61-year-old male with a history of hypertension, CAD, [place], COPD presents to the emergency department for evaluation of generalized weakness, shortness of breath , chest pain for one week. Patient states that over the last week he has had weakness all over. States that he has had worsening shortness of breath over the last week with intermittent chest pain. Describes the chest pain as left anterior chest squeezing sensation. States the chest pain and shortness breath is aggravated with exertion. He states he has had a worsening cough as well. CBC/BMP: 02/28/17 1111 02/28/[address] Angiography 02/28/17 1442 Signed Impressions: Service Date/Time: Sunday, February 28, 2017 16:03 - CONCLUSION: 1. Very limited examination due to significant patient motion. 2. No evidence for pulmonary embolism to the proximal segmental level. More distal segmental and subsegmental PE cannot be evaluated for on this exam. 3. Moderate upper lobe predominant centrilobular emphysema with focal area of groundglass opacity with nearly tree in bud appearance in the medial left anterior upper lobe consistent with focal bronchiolitis. Pedro Lundberg MD Chest X-Ray 02/28/17 1301 Signed Impressions: Service Date/Time: Tuesday, February 28, 2017 13:25 - CONCLUSION: 1. No acute cardiopulmonary disease radiographically. Pedro Lundberg MD Hospital Course patient left the hospital against medical advice before seen. Pt Condition on Discharge: Fair (please note that the patient left AMA.) Discharge Disposition: Discharge Home Discharge Time: <= 30 minutes Marimar Miller MD Mar 04, 2017 13:21
== END 2017-02-28 17:29 | disposition left against medical advice (07) ==
LOC: NEPC 12:30 → NEDA 17:05
PROVIDERS: ADMIT Internal Medicine; ATTEND Internal Medicine
DX: J44.1 Chronic obstructive pulmonary disease with (acute) exacerbation (principal); I10 Essential (primary) hypertension; I25.10 Atherosclerotic heart disease of native coronary artery without angina pectoris; I25.2 Old myocardial infarction; F17.210 Nicotine dependence, cigarettes, uncomplicated; M19.90 Unspecified osteoarthritis, unspecified site; Z85.21 Personal history of malignant neoplasm of larynx; Z86.73 Personal history of transient ischemic attack (TIA), and cerebral infarction without residual deficits; I44.4 Left anterior fascicular block; R94.31 Abnormal electrocardiogram [ECG] [EKG]
CPT/HCPCS: 71010; 71275; 80053; 80307; 81001; 82550; 82552; 83605; 83735; 83880; 84484; 85007; 85027; 85610; 85730; 87804; 93005; 94640; 94664; 96361; 96365; 96374; 99285; G0378; J0456; J0696; J2930; J7030; J7050; Q9967